=== PATIENT | male | born 1930 | race Asian ===

== ENCOUNTER 2016-05-18 10:18 | Emergency (ER) | payer OTHER ==
[2016-05-18 11:02] VITALS: BP 133/61; PULSE 82; TEMP 98; BMI 21.9
[2016-05-18] MEDS ORDERED: IBUPROFEN 600 MG TABLET (FP) PO ONE ×2 (11:35→11:36)
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
== END 2016-05-18 12:00 | disposition home or self-care (01) ==
LOC: EDBD 10:18 → JERFT 10:18
DX: M54.2 Cervicalgia (principal); V53.6XXA Passenger in pick-up truck or van injured in collision with car, pick-up truck or van in traffic accident, initial encounter; Y92.414 Local residential or business street as the place of occurrence of the external cause; Y93.89 Activity, other specified
CPT/HCPCS: 99281-25

== ENCOUNTER 2019-03-07 07:42 | Inpatient (IN) | payer OTHER ==
[2019-03-07] MEDS ORDERED: dilTIAZem HCL 30 MG TABLET (FP) PO ONE (08:09)
[2019-03-07] MEDS ORDERED: ADENOSINE 6 MG/2 ML VIAL IVPUSH ONE (08:10)
--- NOTE | 2019-03-07 08:20 | PDOC ---
History of Present Illness - General Chief Complaint: Irregular Heart Beat Stated Complaint: A FIB - History of Present Illness Initial Comments: 88 year old male with PMH of BPH and mild dementia presenting with Afib with RVR on EMS rhythm strip. EMS gave him adenosine originally because they were unsure of the tachyarrythmia but were then able to identify afib with rvr and then gave Cardizem 25 IV. In our ED he was difficult of hearing and translation via phone was very unproductive. He had to have many things repeated and was very repetitive. We were able to determine that he hasn't had any sick symptoms lately and denies any medication change. He was also able to provide his daughters phone number who we called on the phone. She will come in approximately 1 hour. 03/07/19 08:15 1 Past History - Past Medical History Allergies/Adverse Reactions: Allergies Allergy/AdvReac Type Severity Reaction Status Date / Time No Known Allergies Allergy Verified 03/07/19 08:02 Home Medications: Ambulatory Orders Bimatoprost [Lumigan] 1 drop IO DAILY 03/07/19 Calcium Carb/Vitamin D3/Vit K1 [Calcium + D Soft Chewable Tab] 1 each PO DAILY 03/07/19 Donepezil HCl 5 mg PO DAILY 03/07/19 Finasteride 5 mg PO DAILY 03/07/19 Sennosides [Senna] 8.6 mg PO DAILY 03/07/19 CVA: No COPD: No CHF: No Dementia: Yes (Forgetful) Other medical history: ENLARGED PROSTATE - Surgical History Cholecystectomy: Yes (oct 2015) - Immunization History Immunization Up to Date: Yes - Psycho Social/Smoking Cessation Hx Smoking History: Never smoked Hx Alcohol Use: No Drug/Substance Use Hx: No Review of Systems - Review of Systems Constitutional: No: Chills, Diaphoresis, Fever HEENTM: No: Blurred Vision, Tearing Respiratory: No: Cough, Shortness of Breath, Wheezing Cardiac (ROS): Yes: Irregular Heart Rate, Palpitations. No: Chest Pain, Lightheadedness ABD/GI: No: Diarrhea, Nausea, Vomiting : No: Burning, Dysuria, Discharge Musculoskeletal: No: Back Pain, Joint Pain Integumentary: No: Bruising, Erythema, Flushing, Lesions Neurological: No: Headache, Numbness, Paresthesia Psychiatric: No: Anxiety, Depression Hematologic/Lymphatic: No: Anemia, Blood Clots *Physical Exam - Vital Signs Last Vital Signs Temp Pulse Resp BP Pulse Ox 97.7 F 70 16 137/57 L 100 03/07/19 08:03 03/07/19 08:03 03/07/19 08:03 03/07/19 08:03 03/07/19 08:03 - Physical Exam General Appearance: Yes: Nourished, Appropriately Dressed. No: Apparent Distress HEENT: positive: EOMI, MATHIEU, Normal ENT Inspection, Normal Voice Neck: positive: Trachea midline, Normal Thyroid, Supple. negative: Tender, Rigid Respiratory/Chest: positive: Lungs Clear, Normal Breath Sounds. negative: Chest Tender, Respiratory Distress, Accessory Muscle Use Cardiovascular: positive: Irregularly Irregular Gastrointestinal/Abdominal: positive: Normal Bowel Sounds, Flat, Soft. negative : Tender Lymphatic: negative: Adenopathy, Tenderness Musculoskeletal: positive: Normal Inspection. negative: Decreased Range of Motion Extremity: positive: Normal Capillary Refill, Normal Inspection, Normal Range of Motion. negative: Tender Integumentary: positive: Normal Color, Dry, Warm Neurologic: positive: Alert, Normal Mood/Affect, Motor Strength 5/ ED Treatment Course - LABORATORY CBC & Chemistry Diagram: 03/07/19 08:30 03/07/19 08:30 Medical Decision Making - Medical Decision Making 03/07/19 09:18 88 year old male with PMH of mild dementia and BPH presenting with new onset afib with RVR. Patient was rate controlled on 25 mg IV Cardizem push prior to arrival in our ED. Rhythm strip from [place] was seen and we confirmed that it was AFib with RVR. EKG here demonstrated rate 82, QRS 108, QTc [address] or T wave changes. Labs, AUTO TECH, and UA all within normal limit. Patient remained stable throughout his stay in the ED with occasinal HR fluctiation on movement to low 100s. Discussed with hospitalist team and admitted to tele obs under Dr. Kenyon. 03/07/19 10:34 Discharge - Discharge Information Problems reviewed: Yes Clinical Impression/Diagnosis: Atrial fibrillation with RVR Condition: Stable - Admission Yes - Follow up/Referral - Patient Discharge Instructions - Post Discharge Activity
[2019-03-07] MEDS ORDERED: dilTIAZem HCL 30 MG TABLET (FP) ONE (08:25)
--- NOTE | 2019-03-07 08:25 | PDOC ---
Attending Attestation - Resident Resident Name: Gloria Rossi - ED Attending Attestation I have performed the following: I have examined & evaluated the patient, The case was reviewed & discussed with the resident, I agree w/resident's findings & plan - HPI HPI: 03/07/19 08:24 88 year old male with PMH of BPH and mild dementia presenting with Afib with RVR , s/p EMS administering adenosine originally because they were unsure of the tachyarrythmia but were then able to identify afib with rvr and then gave Cardizem 25 IV. - Physicial Exam PE: 03/07/19 08:25 Agree with the resident's HPI and PE as documented in the electronic medical record. NAD, pleasantly demented. EOMI, PERRL, nl conjunctiva, anicteric; neck supple. lungs clear, irregularly irregular, abdomen soft nontender. no rebound, guarding. Back nontender. SCHULTE x4, no focal neuro deficits. No peripheral edema. normal color for ethnicity, WWP. 03/07/19 08:25 - Medical Decision Making 03/07/19 08:25 Vital Signs Temp Pulse Resp BP Pulse Ox 97.7 F 70 16 137/57 L 100 03/07/19 08:03 03/07/19 08:03 03/07/19 08:03 03/07/19 08:03 03/07/19 08:03 Findings of new onset atrial fibrillation RVR, has been rate controlled by EMS status post adenosine and IV Cardizem. We will give p.o. Cardizem to follow. Patient given Tylenol here for mild headache but neurologically intact, known mild dementia. Basic labs and electrolytes, troponins, chest x-ray and admission for new onset atrial fibrillation RVR 03/07/19 08:57 Chest x-ray with normal hilum and normal cardiac silhouette, minimal atelectasis likely in the retrocardiac region, as patient does not have any respiratory symptoms or cough to suggest any infection at this time. Sharp angles no evidence of edema or infiltrate or mass labs and lytes wnl. trop neg, reassuring. admit for Afib RVR, rate controlled, cards eval, tele monitor. 03/07/19 09:33
[2019-03-07] MEDS ORDERED: ACETAMINOPHEN 325 MG TABLET (FP) PO ONE (08:47)
[2019-03-07 08:56] LABS: BASO % 0.8 % (0-2.0); HEMATOCRIT 38.9 % (35.4-49); HEMOGLOBIN 13.2 GM/dL (11.7-16.9); LYMPH % 20.4 % (8-40); MCH 29.2 pg (25.7-33.7); MCHC 33.9 g/dl (32.0-35.9); MEAN CELL VOLUME 86.1 fl (80-96); MEAN PLT VOLUME 9.2 fl (7.5-11.1); NEUT % 62.8 % (42.8-82.8); PLATELET COUNT 108 K/MM3 (134-434); RBC 4.52 M/mm3 (4.00-5.60); RDW 14.9 % (11.9-15.9); WHITE BLOOD COUNT 3.3 K/mm3 (4.0-10.0)
[2019-03-07] MEDS ORDERED: ACETAMINOPHEN 325 MG TABLET (FP) ONE (09:08)
[2019-03-07 09:10] LABS: INR 1.03 (0.83-1.09); PROTHROMBIN TIME (PATIENT) 12.1 SEC (9.7-13.0)
[2019-03-07 09:25] LABS: ALBUMIN 3.3 g/dl (3.4-5.0); BILIRUBIN,TOTAL 0.7 mg/dL (0.2-1); BLOOD UREA NITROGEN 13.1 mg/dL (7-18); CALCIUM 8.5 mg/dL (8.5-10.1); N-TERMINAL BNP 363.6 pg/ml (5-450); TOT PROT 6.7 g/dl (6.4-8.2)
[2019-03-07 09:39] LABS: HYALINE CASTS 10 /lpf (0-8); PH,URINE 7.5 (5.0-8.0); URINE APPEARANCE CLEAR; URINE BACTERIA 0 /hpf (NEGATIVE); URINE BILIRUBIN NEGATIVE (NEGATIVE); URINE COLOR YELLOW; URINE GLUCOSE (UA) NEGATIVE (NEGATIVE); URINE KETONE NEGATIVE (NEGATIVE); URINE LEUK ESTERASE NEGATIVE (NEGATIVE); URINE NITRITE NEGATIVE (NEGATIVE); URINE PROTEIN 1+ (NEGATIVE); URINE RBC 2 /hpf (0-4); URINE UROBILINOGEN 0.2 mg/dL (0.2-1.0); URINE WBC 1 /hpf (0-5)
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
[2019-03-07] MEDS ORDERED: METOPROLOL TARTRATE 5 MG/5 ML VIAL IVPUSH PRN (10:57)
--- NOTE | 2019-03-07 11:03 | PN ---
Teaching Attending Note Name of Resident: Ihsan Tamayo ATTENDING PHYSICIAN STATEMENT I saw and evaluated the patient. I reviewed the resident's note and discussed the case with the resident. I agree with the resident's findings and plan as documented with exceptions below. SUBJECTIVE: 88 yo Uzbek speaking male with PMHx of BPH, dementia, Hard of hearing, comes with sudden onset of chest pain, palpitations, today, found with new onset atrial fibrillation with RVR s/p Adenosine 6 mg IV/Cardizem 25 mg IV with EMS with improvement in heart rate, rate controlled in ED to 80s-90s, s/p cardizem 30 mg PO. Patient reports feeling better currently. reports being stressed last few days but no fevers, chills, URI like illness, diarrhea, nausea/vomiting, decreased oral intake, new medications any OTc medications. No similar prior history. Daughter at bedside, assisting in history. patient with left facial asymmetry, per daughter unclear of the onset or if new "I only noticed it when you mentioned" 12 point ROS neg for melena, or bleed concerns. OBJECTIVE: Vital Signs Period Temp Pulse Resp BP Sys/Parry Pulse Ox Last 24 Hr 97.7 F 70-95 16 113-137/52-57 98-100 Intake & Output 03/04/19 03/05/19 03/06/19 03/07/19 23:59 23:59 23:59 23:59 Weight 150 lb GENERAL: Awake, alert, and fully oriented, in no acute distress. HEAD: Normal with no signs of trauma. EYES: Pupils equal, round and reactive to light, extraocular movements intact, sclera anicteric, conjunctiva clear. No lid lag. EARS, NOSE, THROAT: Ears normal, nares patent, oropharynx clear without exudates. Moist mucous membranes. NECK: Normal range of motion, soft, supple, no JVD LUNGS: Breath sounds equal, clear to auscultation bilaterally. No wheezes, and no crackles. No accessory muscle use. HEART: S1S2 irregularly irregular ABDOMEN: Soft, nontender, not distended, normoactive bowel sounds, no guarding, no rebound, no masses. MUSCULOSKELETAL: Normal range of motion at all joints. No bony deformities or tenderness. No CVA tenderness. UPPER EXTREMITIES: 2+ pulses, warm, well-perfused. No cyanosis. No clubbing. No peripheral edema. LOWER EXTREMITIES: 2+ pulses, warm, well-perfused. No calf tenderness. No peripheral edema. NEUROLOGICAL: AAOx3, left facial droop with flattening of nasolabial fold, tongue midline, no uvular deviation, sensation symmetric to touch bilaterally, Cranial nerves II-XII intact. Normal speech. power 5/5, gait not observed PSYCHIATRIC: Cooperative. Good eye contact. Appropriate mood and affect. SKIN: Warm, dry, normal turgor, no rashes or lesions noted, normal capillary refill. Home Medications Medication Instructions Recorded Bimatoprost [Lumigan] 1 drop IO DAILY 03/07/19 Calcium Carb/Vitamin D3/Vit K1 1 each PO DAILY 03/07/19 [Calcium + D Soft Chewable Tab] Donepezil HCl 5 mg PO DAILY 03/07/19 Finasteride 5 mg PO DAILY 03/07/19 Sennosides [Senna] 8.6 mg PO DAILY 03/07/19 Active Medications Metoprolol Tartrate (Lopressor -) 25 mg PO BID DAVID Metoprolol Tartrate (Lopressor Injection -) 5 mg IVPUSH Q4H PRN PRN Reason: TACHYCARDIA Laboratory Results - last 24 hr 03/07/19 03/07/19 03/07/19 08:30 08:30 08:30 WBC 3.3 L RBC 4.52 Hgb 13.2 Hct 38.9 MCV 86.1 MCH 29.2 MCHC 33.9 RDW 14.9 Plt Count 108 L MPV 9.2 Absolute Neuts (auto) 2.1 Neutrophils % 62.8 Lymphocytes % 20.4 Monocytes % 15.0 H Eosinophils % 1.0 Basophils % 0.8 Nucleated RBC % 0 PT with INR INR Sodium 141 Potassium 4.0 Chloride 108 H Carbon Dioxide 25 Anion Gap 8 BUN 13.1 Creatinine 1.0 Est GFR (CKD-EPI)AfAm 78.64 Est GFR (CKD-EPI)NonAf 67.85 Random Glucose 101 Calcium 8.5 Total Bilirubin 0.7 AST 21 ALT 20 Alkaline Phosphatase 46 Creatine Kinase 82 Troponin I < 0.02 B-Natriuretic Peptide 363.6 Total Protein 6.7 Albumin 3.3 L Urine Color Urine Appearance Urine pH Ur Specific Mccune Urine Protein Urine Glucose (UA) Urine Ketones Urine Blood Urine Nitrite Urine Bilirubin Urine Urobilinogen Ur Leukocyte Esterase Urine WBC (Auto) Urine RBC (Auto) Urine Casts (Auto) U Epithel Cells (Auto) Urine Bacteria (Auto) 03/07/19 03/07/19 08:30 08:43 WBC RBC Hgb Hct MCV MCH MCHC RDW Plt Count MPV Absolute Neuts (auto) Neutrophils % Lymphocytes % Monocytes % Eosinophils % Basophils % Nucleated RBC % PT with INR 12.10 INR 1.03 Sodium Potassium Chloride Carbon Dioxide Anion Gap BUN Creatinine Est GFR (CKD-EPI)AfAm Est GFR (CKD-EPI)NonAf Random Glucose Calcium Total Bilirubin AST ALT Alkaline Phosphatase Creatine Kinase Troponin I B-Natriuretic Peptide Total Protein Albumin Urine Color Yellow Urine Appearance Clear Urine pH 7.5 Ur Specific Mccune 1.008 L Urine Protein 1+ H Urine Glucose (UA) Negative Urine Ketones Negative Urine Blood Negative Urine Nitrite Negative Urine Bilirubin Negative Urine Urobilinogen 0.2 Ur Leukocyte Esterase Negative Urine WBC (Auto) 1 Urine RBC (Auto) 2 Urine Casts (Auto) 10 U Epithel Cells (Auto) 2.0 Urine Bacteria (Auto) 0 EKG Afib 70s-80s, no acute ST-T changes ASSESSMENT AND PLAN: 88 yom with PMHx of BPH, dementia, MECHOOPDA admitted with new onset atrial fibrillation with RVR -New onset atrial fibrillation with RVR -?Left facial droop/nasolabial fold flattening -BPH -Dementia -Hard of hearing Plan: HR improved, start metoprolol 25 mg BID, with metoprolol 5 mg IV prn for breakthrough tachycardia. 2D echo, TSH, cardiology consult. Asymmetry left mouth angle/flattening of left nasolabial fold, unclear if new Will get CT head for now. Hold off on ASA/AC till above. Check lipid panel/A1c. DVTPPX, AC decision pending CT head above Dispo admit to telemetry observation Plan discussed with patient and daughter at bedside in detail, all questions answered total admit time 55 min.
[2019-03-07 11:14] LABS: ANISOCYTOSIS 0; MACROCYTOSIS 0; PLATELET ESTIMATE DECREASED
[2019-03-07] MEDS ORDERED: METOPROLOL TARTRATE 25 MG TABLET (FP) ONE (11:45)
[2019-03-07] MEDS: METOPROLOL TARTRATE 25 MG TABLET (FP) PO SCH ×2 (11:51→22:45)
--- NOTE | 2019-03-07 12:33 | CON.CARD ---
Consult Consult Specialty:: Cardiology Referred by:: Hospitalist Medicine Reason for Consultation:: Newly diagnosed rapid afib - History of Present Illness Chief Complaint: chest pain, palpitations History of Present Illness: 88 yo Yi speaking male with PMHx of BPH, dementia, hard of hearing, comes with sudden onset of chest pain, palpitations, found with new onset atrial fibrillation with RVR s/p Adenosine 6 mg IV/Cardizem 25 mg IV with EMS with improvement in heart rate, rate controlled in ED to 80s-90s, s/p cardizem 30 mg PO. Patient reports feeling better currently. reports being stressed last few days but no fevers, chills, URI like illness, diarrhea, nausea/vomiting, decreased oral intake, new medications any OTc medications. No similar prior history. patient with left facial asymmetry, per daughter unclear of the onset or if new "I only noticed it when you mentioned" 12 point ROS neg for melena, or bleed concerns. - History Source History Provided By: Medical Record Limitations to Obtaining History: Language Barrier - Alcohol/Substance Use Hx Alcohol Use: No - Smoking History Smoking history: Never smoked Home Medications - Allergies Allergies/Adverse Reactions: Allergies Allergy/AdvReac Type Severity Reaction Status Date / Time No Known Allergies Allergy Verified 03/07/19 08:02 - Home Medications Home Medications: Ambulatory Orders Bimatoprost [Lumigan] 1 drop IO DAILY 03/07/19 Calcium Carb/Vitamin D3/Vit K1 [Calcium + D Soft Chewable Tab] 1 each PO DAILY 03/07/19 Donepezil HCl 5 mg PO DAILY 03/07/19 Finasteride 5 mg PO DAILY 03/07/19 Sennosides [Senna] 8.6 mg PO DAILY 03/07/19 Review of Systems - Review of Systems Cardiovascular: reports: Chest Pain, Palpitations, Shortness of Breath Vital Signs: Vital Signs Temperature 97.7 F 03/07/19 08:03 Pulse Rate 95 H 03/07/19 11:02 Respiratory Rate 16 03/07/19 08:03 Blood Pressure 113/52 L 03/07/19 11:02 O2 Sat by Pulse Oximetry (%) 98 03/07/19 11:02 Constitutional: Yes: No Distress, Calm, Thin Neck: Yes: Supple Respiratory: Yes: Regular, CTA Bilaterally Gastrointestinal: Yes: Normal Bowel Sounds, Soft Cardiovascular: Yes: Tachycardia, Pulse Irregular JVD: No Carotid Bruit: No Heart Sounds: Yes: S1, S2 Murmur: Yes: Systolic Murmur, Grade 1 Edema: No Neurological: Yes: Facial Droop (Left) - Other Data Labs, Other Data: CBC, BMP 03/07/19 08:30 03/07/19 08:30 INR, PTT INR 1.03 (0.83-1.09) 03/07/19 08:30 Troponin, BNP 03/07/19 03/07/19 08:30 08:30 Troponin I < 0.02 B-Natriuretic Peptide 363.6 Troponin, BNP 03/07/19 03/07/19 08:30 08:30 Troponin I < 0.02 B-Natriuretic Peptide 363.6 Afib 70s-80s, no acute ST-T changes Ejection Fraction %: LVEF > or = 40 % Imaging - Results Chest X-ray: Report Reviewed (NAD) Cat Scan: Report Reviewed (HCT: No acute stroke or bleed) Problem List - Problems (1) Atrial fibrillation with RVR Code(s): I48.91 - UNSPECIFIED ATRIAL FIBRILLATION Assessment/Plan 1. Newly diagnosed atrial fibrillation with RVR [id number] 2. Left facial droop/nasolabial fold flattening r/o CVA 3. Dementia 4. BPH 5. Presbycusis 6. Microalbuminuria P:1. Agree with Lopressor 25 bid with Lopressor 5 IV as needed for rate control 2. F/u 2D echo, Ha1c, brain MRI 3. Start Eliquis 5 bid, BRYAN-I/ARB as hemodynamics tolerate 4. Telemetry monitoring to assess rate-control 5. Thank you for consultative opportunity
--- NOTE | 2019-03-07 13:26 | EKG ---
Test Reason : Blood Pressure : / mmHG Vent. Rate : 082 BPM Atrial Rate : 073 BPM P-R Int : 000 ms QRS Dur : 108 ms QT Int : 380 ms P-R-T Axes : 000 040 022 degrees QTc Int : 443 ms ATRIAL FIBRILLATION ABNORMAL ECG NO PREVIOUS ECGS AVAILABLE Confirmed by SAMIA MI MD ([id number]) on 03/07/2019 1:26:19 PM Referred By: Confirmed By:SAMIA MI MD
[2019-03-07] MEDS ORDERED: APIXABAN 5 MG TABLET ONE (14:04)
[2019-03-07] MEDS: APIXABAN 5 MG TABLET PO SCH ×2 (14:08→22:45)
--- NOTE | 2019-03-07 15:33 | ECHO ---
Name: ARTHUR LOMELI Exam:Adult Echocardiogram Study Date: 03/07/2019 01:19 PM Age: 88 yrs Reason For Study: New Onset AFib Height: 67 in Weight: 150 lb BSA: 1.8 m2 MMode/2D Measurements & Calculations IVSd: 1.1 cm Ao root diam: 2.8 cm LVIDd: 3.0 cm LA dimension: 3.4 cm LVIDs: 2.2 cm ACS: 1.5 cm LVPWd: 1.2 cm EDV(Teich): 34.2 ml LVOT diam: 1.8 cm ESV(Teich): 16.2 ml RV S Vikram: 13.2 cm/sec Doppler Measurements & Calculations MV E max vikram: 105.6 cm/sec Ao V2 max: 126.0 cm/sec MV A max vikram: 63.7 cm/sec Ao max P.3 mmHg MV E/A: 1.7 Ao V2 mean: 94.8 cm/sec MV dec time: 0.22 sec Ao mean P.9 mmHg Ao V2 VTI: 30.4 cm AI P1/2t: 848.1 msec OLIVER(V,D): 1.6 cm2 AI max vikram: 408.9 cm/sec LV V1 max P.8 mmHg AI max P.9 mmHg LV V1 max: 83.4 cm/sec AI dec slope: 141.2 cm/sec2 MR max vikram: 291.5 cm/sec TR max vikram: 252.5 cm/sec MR max P.0 mmHg TR max P.6 mmHg PA V2 max: 55.8 cm/sec PI end-d vikram: 76.0 cm/sec PA max P.2 mmHg Med Peak E' Vikram: 9.6 cm/sec Med E/e': 11.0 Lat Peak E' Vikram: 10.0 cm/sec Lat E/e': 10.5 Procedure A complete two-dimensional transthoracic echocardiogram was performed (2D, M-mode, Doppler and color flow Doppler). Left Ventricle The left ventricle is normal in size. Left ventricular systolic function is normal. Ejection Fraction = 60- 65%. No regional wall motion abnormalities noted. Right Ventricle The right ventricle is normal size. The right ventricular systolic function is normal. Atria The left atrial size is normal. Right atrial size is normal. Mitral Valve The mitral valve is normal in structure and function. There is mild mitral regurgitation. Tricuspid Valve The tricuspid valve is normal in structure and function. There is mild tricuspid regurgitation. Pulmo nary artery systolic pressure is at least 32 mmHg if RA pressure is assumed 3 mmHg. Aortic Valve There is mild aortic sclerosis.;. Mild to moderate aortic regurgitation. Pulmonic Valve The pulmonic valve is not well visualized. Mild pulmonic valvular regurgitation. Great Vessels The aortic root is normal size. Pericardium/Pleura There is no pericardial effusion. Interpretation Summary The left ventricle is normal in size. Left ventricular systolic function is normal. No regional wall motion abnormalities noted. Ejection Fraction = 60-65%. The right ventricular systolic function is normal. The left atrial size is normal. Right atrial size is normal. There is mild mitral regurgitation. There is mild tricuspid regurgitation. Pulmonary artery systolic pressure is at least 32 mmHg if RA pressure is assumed 3 mmHg There is mild aortic sclerosis. Mild to moderate aortic regurgitation. Mild pulmonic valvular regurgitation. There is no pericardial effusion. Deniz Lopez MD 03/07/2019 03:32 PM
[2019-03-07 17:13] VITALS: BMI 23.6
[2019-03-07] MEDS ORDERED: ROSUVASTATIN CA 5 MG TABLET (FP) PO SCH (22:00)
[2019-03-07] MEDS ORDERED: LATANOPROST 0.005% OPHTH SOLN 2.5ML BOTTLE OU SCH (22:00)
[2019-03-08 07:59] LABS: HEMATOCRIT 38.2 % (35.4-49); HEMOGLOBIN 12.9 GM/dL (11.7-16.9); MCH 28.9 pg (25.7-33.7); MCHC 33.8 g/dl (32.0-35.9); MEAN CELL VOLUME 85.6 fl (80-96); MEAN PLT VOLUME 9.5 fl (7.5-11.1); PLATELET COUNT 120 K/MM3 (134-434); RBC 4.46 M/mm3 (4.00-5.60); RDW 14.7 % (11.9-15.9); WHITE BLOOD COUNT 3.3 K/mm3 (4.0-10.0)
[2019-03-08] MEDS: METOPROLOL TARTRATE 25 MG TABLET (FP) PO SCH ×2 (08:02→10:39)
[2019-03-08 08:23] LABS: INR 1.34 (0.83-1.09); PROTHROMBIN TIME (PATIENT) 15.8 SEC (9.7-13.0)
[2019-03-08 08:25] LABS: ACTIVATED PTT 34.9 SECONDS (25.2-36.5)
[2019-03-08 08:30] LABS: BILIRUBIN,TOTAL 0.8 mg/dL (0.2-1); BLOOD UREA NITROGEN 13.4 mg/dL (7-18); CALCIUM 7.9 mg/dL (8.5-10.1); CREATININE 0.8 mg/dL (0.55-1.3); MAGNESIUM 2.2 mg/dL (1.8-2.4); PHOSPHOROUS 2.1 mg/dL (2.5-4.9); POTASSIUM 3.8 mmol/L (3.5-5.1); TOT PROT 6.1 g/dl (6.4-8.2)
[2019-03-08] MEDS ORDERED: NAPH,MB-DB/K PH,MBDB POWDER PACKET PO ONE (08:46)
[2019-03-08] MEDS ORDERED: SENNOSIDES 8.6MG TABLET (FP) PO SCH ×2 (10:00→11:37)
[2019-03-08] MEDS ORDERED: TAMSULOSIN HCL 0.4 MG CAP PO SCH (10:00)
[2019-03-08] MEDS ORDERED: FINASTERIDE 5 MG TABLET (FP) PO SCH (10:00)
[2019-03-08] MEDS ORDERED: DONEPEZIL HCL 5 MG TABLET (FP) PO SCH (10:00)
--- NOTE | 2019-03-08 10:16 | EKG ---
Test Reason : Blood Pressure : / mmHG Vent. Rate : 122 BPM Atrial Rate : 063 BPM P-R Int : 000 ms QRS Dur : 094 ms QT Int : 336 ms P-R-T Axes : 000 048 012 degrees QTc Int : 478 ms ATRIAL FIBRILLATION WITH RAPID VENTRICULAR RESPONSE ABNORMAL ECG WHEN COMPARED WITH ECG OF 07-MAR-2019 07:50, VENT. RATE HAS INCREASED BY 40 BPM Confirmed by Steve Zaldivar MD ([id number]) on 03/08/2019 10:16:31 AM Referred By: Confirmed By:Steve Zaldivar MD
[2019-03-08] MEDS: APIXABAN 5 MG TABLET PO SCH (10:38)
--- NOTE | 2019-03-08 11:27 | PN ---
Progress Note, Physician History of Present Illness: Remains in rapid afib. - Current Medication List Current Medications: Active Medications Apixaban (Eliquis -) 5 mg PO BID [facility] Last Admin: 03/08/19 10:38 Dose: 5 mg Donepezil HCl (Aricept -) 5 mg PO DAILY [facility] Last Admin: 03/08/19 10:38 Dose: 5 mg Finasteride (Proscar -) 5 mg PO DAILY [facility] Last Admin: 03/08/19 10:38 Dose: 5 mg Latanoprost (Xalatan 0.005% Eye Drops -) 1 drop OU HS [facility] Last Admin: 03/07/19 22:45 Dose: 1 drop Metoprolol Tartrate (Lopressor -) 25 mg PO BID [facility] Last Admin: 03/08/19 10:39 Dose: Not Given Metoprolol Tartrate (Lopressor Injection -) 5 mg IVPUSH Q4H PRN PRN Reason: TACHYCARDIA Rosuvastatin Calcium (Crestor -) 5 mg PO HS [facility] Last Admin: 03/07/19 22:45 Dose: 5 mg Senna (Senna -) 8.6 tab PO DAILY [facility] Last Admin: 03/08/19 10:38 Dose: 8.6 tab Tamsulosin HCl (Flomax -) 0.4 mg PO DAILY [facility] Last Admin: 03/08/19 10:38 Dose: 0.4 mg - Objective Vital Signs: Vital Signs Temperature 98.3 F 03/08/19 04:00 Pulse Rate 97 H 03/08/19 04:00 Respiratory Rate 20 03/08/19 04:00 Blood Pressure 161/57 L 03/08/19 04:00 O2 Sat by Pulse Oximetry (%) 96 03/07/19 20:29 Constitutional: Yes: No Distress, Calm, Thin Neck: Yes: Supple Cardiovascular: Yes: Tachycardia, Pulse Irregular Respiratory: Yes: Regular, CTA Bilaterally Gastrointestinal: Yes: Normal Bowel Sounds, Soft Edema: No Labs: CBC, BMP 03/08/19 06:10 03/08/19 06:10 INR, PTT INR 1.34 (0.83-1.09) H 03/08/19 06:10 - ....Imaging EKG: Report Reviewed (Tele: Rapid afib) Problem List - Problems (1) Atrial fibrillation with RVR Code(s): I48.91 - UNSPECIFIED ATRIAL FIBRILLATION (2) Hyperlipidemia Code(s): E78.5 - HYPERLIPIDEMIA, UNSPECIFIED Qualifiers: Hyperlipidemia type: pure hypercholesterolemia Qualified Code(s): E78.00 - Pure hypercholesterolemia, unspecified; E78.0 - Pure hypercholesterolemia Assessment/Plan 03/07/2019 Echo: Normal LV size and fxn LVEF 60-65, normal RV size and fxn, normal atrial sizes, mild MR, TR, RVSP 32 mmHg, mild-mod AR, mild [place] 03/07/2019 Brain MRI: No acute or subacute stroke 1. Newly diagnosed atrial fibrillation with RVR [id number] 2. Left facial droop/nasolabial fold flattening ruled out CVA 3. Dementia 4. BPH 5. Presbycusis 6. Microalbuminuria 7. Hyperlipidemia P:1. Increase Lopressor 25 tid with Lopressor 5 IV as needed for rate control 2. Continue Eliquis 5 bid, Crestor 5 qd, BRYAN-I/ARB as hemodynamics tolerate 3. Telemetry monitoring to assess rate-control
[2019-03-08] MEDS ORDERED: METOPROLOL TARTRATE 25 MG TABLET (FP) PO SCH ×2 (14:00→22:00)
[2019-03-08 14:32] VITALS: BP 141/70; PULSE 73; TEMP 97.5
--- NOTE | 2019-03-08 15:34 | PN ---
Teaching Attending Note Name of Resident: Chino Lion ATTENDING PHYSICIAN STATEMENT I saw and evaluated the patient. I reviewed the resident's note and discussed the case with the resident. I agree with the resident's findings and plan as documented with exceptions below. SUBJECTIVE: patient seen and examined. no complaints. OBJECTIVE: Vital Signs Period Temp Pulse Resp BP Sys/Parry Pulse Ox Last 24 Hr 97.5 F-98.5 F 73-122 16-20 97-161/50-73 95-98 Intake & Output 03/05/19 03/06/19 03/07/19 03/08/19 23:59 23:59 23:59 23:59 Weight 150 lb 8 oz general: sitting in bed, comfortable Chest:CTAB, no rales or wheezing Abdomen:Soft Extremities: no edema Neuro minimal left nasolabial fold flattening, unchanged from yesterday Home Medications Medication Instructions Recorded Bimatoprost [Lumigan] 1 drop IO DAILY 03/07/19 Calcium Carb/Vitamin D3/Vit K1 1 each PO DAILY 03/07/19 [Calcium + D Soft Chewable Tab] Donepezil HCl 5 mg PO DAILY 03/07/19 Finasteride 5 mg PO DAILY 03/07/19 Rosuvastatin Calcium [Crestor] 5 mg PO DAILY 03/07/19 Sennosides [Senna] 8.6 mg PO DAILY 03/07/19 Tamsulosin HCl [Flomax] 0.4 mg PO DAILY 03/07/19 Apixaban [Eliquis -] 5 mg PO BID #60 tablet 03/08/19 Metoprolol Tartrate [Lopressor -] 25 mg PO BID #60 tablet 03/08/19 Active Medications Apixaban (Eliquis -) 5 mg PO BID [facility] Last Admin: 03/08/19 10:38 Dose: 5 mg Donepezil HCl (Aricept -) 5 mg PO DAILY [facility] Last Admin: 03/08/19 10:38 Dose: 5 mg Finasteride (Proscar -) 5 mg PO DAILY [facility] Last Admin: 03/08/19 10:38 Dose: 5 mg Latanoprost (Xalatan 0.005% Eye Drops -) 1 drop OU HS [facility] Last Admin: 03/07/19 22:45 Dose: 1 drop Metoprolol Tartrate (Lopressor Injection -) 5 mg IVPUSH Q4H PRN PRN Reason: TACHYCARDIA Last Admin: 03/08/19 11:49 Dose: 5 mg Metoprolol Tartrate (Lopressor -) 25 mg PO BID [facility] Rosuvastatin Calcium (Crestor -) 5 mg PO HS [facility] Last Admin: 03/07/19 22:45 Dose: 5 mg Senna (Senna -) 1 tab PO DAILY [facility] Tamsulosin HCl (Flomax -) 0.4 mg PO DAILY [facility] Last Admin: 03/08/19 10:38 Dose: 0.4 mg MRI brain results noted 2D echo results noted ASSESSMENT AND PLAN: 88 yom with PMHx of BPH, dementia, PILOT STATION admitted with new onset atrial fibrillation with RVR -New onset atrial fibrillation with RVR -?Left facial asymmetry -BPH -Dementia -Hard of hearing Plan: reverted to NSR. patient asymptomatic Cardiology input noted Metoprolol 25 mg BID, eliquis 5 mg BID outpatient follow up dc home with daughter and outpatient cardiology follow up.
--- NOTE | 2019-03-08 17:31 | DS ---
Physical Exam: SUBJECTIVE: Patient seen and examined at the bedside. 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 Unable to obtain any ROS. Patient appeared comfortable in bed. OBJECTIVE: Vital Signs Period Temp Pulse Resp BP Sys/Aprry Pulse Ox Last 24 Hr 97.5 F-98.5 F 73-122 18-20 102-161/50-73 95-96 PHYSICAL EXAM GENERAL: The patient is awake, alert, and fully oriented, in no acute distress. HEAD: Normal with no signs of trauma. EYES: PERRL, extraocular movements intact, sclera anicteric, conjunctiva clear. ENT: Oropharynx clear without exudates, moist mucous membranes. LUNGS: Breath sounds equal, clear to auscultation bilaterally, no wheezes, no crackles, no accessory muscle use. HEART: Tachycardic rate and irregular rhythm, S1, S2 without murmur, rub. ABDOMEN: Soft, nontender, nondistended, normoactive bowel sounds, no guarding, no rebound, no masses. EXTREMITIES: 2+ pulses, warm, well-perfused, no edema. NEUROLOGICAL: Moving all extremities spontaneously. Mild L facial droop, improves with smile, no loss of nasolabial fold. SKIN: Warm, dry, normal turgor, no rashes or lesions noted. LABS Laboratory Results - last 24 hr 03/08/19 03/08/19 03/08/19 06:10 06:10 06:10 WBC 3.3 L RBC 4.46 Hgb 12.9 Hct 38.2 MCV 85.6 MCH 28.9 MCHC 33.8 RDW 14.7 Plt Count 120 L MPV 9.5 PT with INR 15.80 H INR 1.34 H PTT (Actin FS) 34.9 Sodium 142 Potassium 3.8 Chloride 111 H Carbon Dioxide 26 Anion Gap 5 L BUN 13.4 Creatinine 0.8 Est GFR (CKD-EPI)AfAm 93.75 Est GFR (CKD-EPI)NonAf 80.89 Random Glucose 94 Calcium 7.9 L Phosphorus 2.1 L Magnesium 2.2 Total Bilirubin 0.8 AST 17 ALT 21 Alkaline Phosphatase 43 L Total Protein 6.1 L Albumin 3.0 L HOSPITAL COURSE: Paradise Lara is an 88 year old Kazakh speaking male with history of benign prostatic hyperplasia, dementia admitted with afib with RVR. Admission EKG noting afib with RVR at 122 BPM. Troponins were negative. Patient was started on metoprolol 25mg bid and Eliquis 5mg bid as had elevated CHADSVASC score. Echo showed EF 60- 65%, normal ventricular size and functiom, trace regurgitations. On day of discharge, patient had a conversion to normal sinus rhythm. Patient was seen by cardiology who recommended that the patient continue on metoprolol 25mg bid, Eliquis 5mg bid, and to follow with cardiology in the outpatient clinic. Patient had head CT for questionable left facial droop which did not show any acute pathology. Follow up MRI did not show any acute or subacute infarction. Patient and family were advised to take medications as prescribed and to follow up with cardiology outpatient. Family was in agreement with plan and reiterated it. Patient was discharged in stable medical condition. Date of Admission:03/08/19 Date of Discharge: 03/08/19 Minutes to complete discharge: 36 Discharge Summary Problems reviewed: Yes Reason For Visit: ATRIAL FIBRILLATION W RAPID VENT RESPONSE Condition: Stable - Instructions Diet, Activity, Other Instructions: You were admitted after you were found to have an abnormal heart rate which caused your heart to beat quickly. You were given medications in order to control your heart rate and a blood thinner medication in order to reduce your risk of strokes occurring because the abnormal heart rate you have is a risk factor for strokes. You were monitored on a cardiac floor while you were in the hospital. You had an echocardiogram (ultrasound of the heart) which showed normal heart size and pumping and some valve abnormalities. You were seen by a cardiopulmonary specialist (heart doctor) who recommended that you continue taking the medications prescribed to you here at the hospital and then see a cardiopulmonary specialist in the outpatient clinic. You had a brain MRI which did not show any evidence of a stroke. MEDICATIONS START to take Metoprolol 25mg twice a day. START to take Eliquis 5mg twice a day. STOP your Aspirin 81 mg daily. Continue taking all of your other home medications as prescribed. REFERRALS Please see your primary care doctor within 1 week. If you do not have a primary care doctor, you may make an appointment at the resident's clinic. Please see the cardiopulmonary specialist, Dr. Deniz Lopez, within 1 week. SPECIAL INSTRUCTIONS You should have repeat thyroid function tests (TSH) in 4-6 weeks. You may obtain these at your primary care doctor's office. you are started a new medication Eliquis which is a blood thinner to reduce risk of stroke. Please note that the medication is a blood thinner and can increase your risk of bleeding. Please be careful to avoid cuts or scrapes and to seek care if unable to control bleeding. Also ABSOLUTE NOT SPINAL PROCEDURES SUCH LUMBAR PUNCTURE, SPINAL INJECTIONS ETC. WHILE ON THIS MEDICATION. Please make sure all your doctor are aware you are on this medication as it will need to be held per instructions before any intervention or procedure. If you notice worsening dizziness or weakness, while on new medication metoprolol, please inform your doctor. Home BP monitoring 3-4 times a week. If you have any symptoms of chest pain, shortness of breath, palpitations, fainting, lightheadedness, weakness on one side, slurred speech, difficulty walking or talking, or any other general feelings of unwellness, please call 911 or go your nearest emergency room. Referrals: [facility] [facility] [Provider Group] - 1 Week Deniz Lopez MD [Staff Physician] - 1 Week Disposition: HOME - Home Medications Comprehensive Discharge Medication List: Ambulatory Orders Bimatoprost [Lumigan] 1 drop IO DAILY 03/07/19 Calcium Carb/Vitamin D3/Vit K1 [Calcium + D Soft Chewable Tab] 1 each PO DAILY 03/07/19 Donepezil HCl 5 mg PO DAILY 03/07/19 Finasteride 5 mg PO DAILY 03/07/19 Rosuvastatin Calcium [Crestor] 5 mg PO DAILY 03/07/19 Sennosides [Senna] 8.6 mg PO DAILY 03/07/19 Tamsulosin HCl [Flomax] 0.4 mg PO DAILY 03/07/19 Apixaban [Eliquis -] 5 mg PO BID #60 tablet 03/08/19 Metoprolol Tartrate [Lopressor -] 25 mg PO BID #60 tablet 03/08/19 Problem List - Problems (1) Hyperlipidemia Code(s): E78.5 - HYPERLIPIDEMIA, UNSPECIFIED Qualifiers: Hyperlipidemia type: pure hypercholesterolemia Qualified Code(s): E78.00 - Pure hypercholesterolemia, unspecified; E78.0 - Pure hypercholesterolemia (2) Atrial fibrillation with RVR Code(s): I48.91 - UNSPECIFIED ATRIAL FIBRILLATION This patient is new to me today: Yes Date on this admission: 03/08/19 Emergency Visit: Yes ED Registration Date: 03/08/19 Care time: The patient presented to the Emergency Department on the above date and was hospitalized for further evaluation of their emergent condition. Critical Care patient: No - Discharge Referral Referred to [facility] No
== END 2019-03-08 15:38 | disposition home or self-care (01) | DRG 310 ==
LOC: JER 07:42 → JERBED 08:18 → J4W 16:43 → OBSVTOIN 03-08 12:03
PROVIDERS: ADMIT Hospitalist; ATTEND Hospitalist
DX: I48.91 Unspecified atrial fibrillation (principal); E78.5 Hyperlipidemia, unspecified; F03.90 Unspecified dementia, unspecified severity, without behavioral disturbance, psychotic disturbance, mood disturbance, and anxiety; N40.0 Benign prostatic hyperplasia without lower urinary tract symptoms; R29.810 Facial weakness; H40.9 Unspecified glaucoma; H91.93 Unspecified hearing loss, bilateral; H91.10 Presbycusis, unspecified ear; R80.9 Proteinuria, unspecified
CPT/HCPCS: 36415; 70450-TC; 70551-TC; 71045-TC-FY; 80053; 80061; 81003; 82550; 83036; 83721; 83735; 83880; 84100; 84436; 84443; 84484; 85025; 85027; 85610; 85730; 93005; 93010; 93306-TC; 97161-GP; 99285-25; G0378

== ENCOUNTER 2022-11-04 10:02 | Observation (INO) | payer OTHER ==
[2022-11-04 11:13] LABS: HEMATOCRIT 22.2 % (35.4-49); HEMOGLOBIN 7.6 GM/dL (11.7-16.9); MCH 28.4 pg (25.7-33.7); MCHC 34.3 g/dl (32.0-35.9); MEAN CELL VOLUME 82.9 fl (80-96); PLATELET COUNT 74 10^3/uL (134-434); RBC 2.68 M/mm3 (4.00-5.60); RDW 15.8 % (11.9-15.9); WHITE BLOOD COUNT 2.5 K/mm3 (4.0-10.0)
[2022-11-04 11:26] LABS: INR 1.11 (0.83-1.09); PROTHROMBIN TIME (PATIENT) 12.9 SEC (9.7-13.0)
[2022-11-04 11:29] LABS: ACTIVATED PTT 27.8 SECONDS (25.2-36.5)
[2022-11-04 11:48] LABS: CHLORIDE 114 mmol/L (98-107); POTASSIUM 5.1 mmol/L (3.5-5.1); SODIUM 145 mmol/L (136-145)
[2022-11-04 11:51] LABS: ALBUMIN 2.9 g/dl (3.4-5.0); CALCIUM 8.3 mg/dL (8.5-10.1)
[2022-11-04 11:52] LABS: ANION GAP 5 MMOL/L (8-16); BLOOD UREA NITROGEN 44.7 mg/dL (7-18); CO2 26 mmol/L (21-32); GLUCOSE,RANDOM 165 mg/dL (74-106)
[2022-11-04 11:55] LABS: CREATININE 1.2 mg/dL (0.55-1.3); SGPT/ALT 16 U/L (13-61)
[2022-11-04 11:57] LABS: BILIRUBIN,TOTAL 0.4 mg/dL (0.2-1); TOT PROT 5.4 g/dl (6.4-8.2)
[2022-11-04 11:58] LABS: ALK PHOS 43 U/L (45-117)
[2022-11-04 12:04] LABS: ANISOCYTOSIS 1+; MACROCYTOSIS 1+; SICKELED CELLS 2+
[2022-11-04 12:29] LABS: SGOT/AST 15 U/L (15-37)
[2022-11-04 13:38] LABS: PH,URINE 5.5 (5.0-8.0); URINE APPEARANCE CLEAR; URINE BILIRUBIN NEGATIVE (NEGATIVE); URINE COLOR YELLOW; URINE GLUCOSE (UA) NEGATIVE (NEGATIVE); URINE KETONE NEGATIVE (NEGATIVE); URINE LEUK ESTERASE NEGATIVE (NEGATIVE); URINE NITRITE NEGATIVE (NEGATIVE); URINE PROTEIN TRACE (NEGATIVE); URINE UROBILINOGEN 0.2 mg/dL (0.2-1.0)
[2022-11-04] MEDS ORDERED: PANTOPRAZOLE SODIUM 40 MG VIAL IVPUSH ONE (14:08)
[2022-11-04] MEDS ORDERED: DEXTROSE 5%-0.45% SALINE 1,000 ML IV SCH (14:45)
[2022-11-04 15:04] LABS: IRON SERUM 57 ug/dL (50-175); TOTAL IRON BINDING CAPACITY 198 ug/dL (250-450)
[2022-11-04 16:37] VITALS: BMI 25.0
[2022-11-04] MEDS: PANTOPRAZOLE SODIUM 80 MG in SODIUM CHLORIDE 100 ML IVPB SCH (20:50)
[2022-11-04 22:20] LABS: HEMATOCRIT 23.8 % (35.4-49); HEMOGLOBIN 8.4 GM/dL (11.7-16.9); MCH 28.6 pg (25.7-33.7); MCHC 35.2 g/dl (32.0-35.9); MEAN CELL VOLUME 81.3 fl (80-96); MEAN PLT VOLUME 9.8 fl (7.5-11.1); PLATELET COUNT 82 10^3/uL (134-434); RBC 2.93 M/mm3 (4.00-5.60); RDW 15.2 % (11.9-15.9)
[2022-11-04 23:25] LABS: ANISOCYTOSIS 3+; MACROCYTOSIS 0; OVALOCYTE 1+; PLATELET ESTIMATE DECREASED
[2022-11-05] MEDS: PANTOPRAZOLE SODIUM 80 MG in SODIUM CHLORIDE 100 ML IVPB SCH (09:27)
[2022-11-05] MEDS: FINASTERIDE 5 MG TABLET (FP) PO SCH (09:27)
[2022-11-05] MEDS: TAMSULOSIN HCL 0.4 MG CAP PO SCH (09:27)
[2022-11-05] MEDS ORDERED: PANTOPRAZOLE SODIUM 40 MG VIAL IVPUSH SCH (10:00)
[2022-11-05] MEDS ORDERED: PATIENT'S OWN MEDICATION (NON-FORMULARY) (Calcium Carb/Vitamin D3/Vit K1 [Calcium + D Soft PO SCH (10:00)
[2022-11-05 11:23] LABS: HEMATOCRIT 26.3 % (35.4-49); HEMOGLOBIN 8.9 GM/dL (11.7-16.9); MCH 27.7 pg (25.7-33.7); MCHC 33.8 g/dl (32.0-35.9); MEAN CELL VOLUME 82.1 fl (80-96); MEAN PLT VOLUME 9.7 fl (7.5-11.1); PLATELET COUNT 78 10^3/uL (134-434); RDW 15.5 % (11.9-15.9)
[2022-11-05 12:16] LABS: ANISOCYTOSIS 0; HELMET CELLS 0; HOWELL-JOLLY BODIES 0; MACROCYTOSIS 0; OVALOCYTE 0; ROULEAU 0; SICKELED CELLS 0; TARGET CELLS 0; TEAR DROP CELLS 0; TOXIC GRANULATION 0
[2022-11-05 12:19] LABS: POTASSIUM 4.3 mmol/L (3.5-5.1)
[2022-11-05 12:31] LABS: CALCIUM 8.2 mg/dL (8.5-10.1)
[2022-11-05 12:32] LABS: BLOOD UREA NITROGEN 24.2 mg/dL (7-18)
[2022-11-05 12:34] LABS: CREATININE 0.9 mg/dL (0.55-1.3)
[2022-11-05] MEDS ORDERED: ROSUVASTATIN CA 5 MG TABLET PO SCH (22:00)
[2022-11-06] MEDS: PANTOPRAZOLE SODIUM 80 MG in SODIUM CHLORIDE 100 ML IVPB SCH ×2 (01:16→01:18)
[2022-11-06] MEDS: TAMSULOSIN HCL 0.4 MG CAP PO SCH (08:49)
[2022-11-06] MEDS ORDERED: PANTOPRAZOLE 40 MG TABLET PO SCH (10:00)
[2022-11-06] MEDS: FINASTERIDE 5 MG TABLET (FP) PO SCH (10:35)
[2022-11-06 11:58] LABS: HEMATOCRIT 27.1 % (35.4-49); HEMOGLOBIN 9.2 GM/dL (11.7-16.9); MCH 28.8 pg (25.7-33.7); MEAN CELL VOLUME 84.7 fl (80-96); PLATELET COUNT 80 10^3/uL (134-434); RDW 15.1 % (11.9-15.9); WHITE BLOOD COUNT 3.1 K/mm3 (4.0-10.0)
[2022-11-06 12:21] LABS: POTASSIUM 3.7 mmol/L (3.5-5.1)
[2022-11-06 12:25] LABS: ALBUMIN 3.2 g/dl (3.4-5.0)
[2022-11-06 12:26] LABS: BLOOD UREA NITROGEN 17.1 mg/dL (7-18); CALCIUM 8.3 mg/dL (8.5-10.1)
[2022-11-06 12:31] LABS: CREATININE 1.2 mg/dL (0.55-1.3)
[2022-11-06 12:36] VITALS: BP 131/57; PULSE 73; RESP 20; TEMP 98.5
== END 2022-11-06 16:55 | disposition home or self-care (01) ==
LOC: JER 10:02 → JERBED 12:27 → J5S 14:49
PROVIDERS: ADMIT Internal Medicine; ATTEND Internal Medicine
DX: K92.1 Melena (principal); F03.90 Unspecified dementia, unspecified severity, without behavioral disturbance, psychotic disturbance, mood disturbance, and anxiety; I48.91 Unspecified atrial fibrillation; K59.00 Constipation, unspecified; Z90.49 Acquired absence of other specified parts of digestive tract; E78.5 Hyperlipidemia, unspecified; K92.2 Gastrointestinal hemorrhage, unspecified; H40.9 Unspecified glaucoma; N40.0 Benign prostatic hyperplasia without lower urinary tract symptoms
CPT/HCPCS: 36415; 36430; 80048; 80053; 81003; 82272; 82550; 82728; 83540; 83550; 84466; 85025; 85027; 85610; 85730; 86850; 86900; 86901; 86922; 93005; 93010; 99285-25; G0378; P9058